=== PATIENT | male | born 1935 | race Two or more races ===

== ENCOUNTER 2016-09-21 17:55 | Inpatient (IN) | payer MEDICARE ==
[~2016-09-21] VITALS: Ht 162.6 cm; Wt 85.3 kg
[2016-09-21 18:24] LABS: KETONES,URINE Negative (NEGATIVE); LEUKOCYTE ESTERASE ,URINE Small (NEGATIVE)
[2016-09-21 18:30] LABS: CANNABINOID, URINE NEGATIVE (NEGATIVE); PHENCYCLIDINE SCREEN,URINE NEGATIVE (NEGATIVE)
[2016-09-21 18:39] LABS: ADD UA MICROSCOPIC YES
[2016-09-21 18:43] LABS: BASOPHILS % (AUTO) 0.5 % (0.0-2.0); DIFF TOTAL % 100 %; EOSINOPHILS # (AUTO) 0.2 /CMM (0.0-0.7); EOSINOPHILS % (AUTO) 2.3 % (0.0-6.0); HEMATOCRIT 37 % (39-51); LYMPHOCYTES % (AUTO) 24.1 % (20.0-44.0); MEAN CORPUSCULAR HEMOGLOBIN 33 PG (26.0-33.0); MEAN CORPUSCULAR HGB CONC 35 g/dl (31.0-36.0); MEAN CORPUSCULAR VOLUME 93 fL (80-96); MONOCYTES # (AUTO) 0.5 /CMM (0.1-1.30); MONOCYTES % (AUTO) 5.7 % (2.0-12.0); NEUTROPHILS # (AUTO) 5.8 /CMM (1.8-8.9); NEUTROPHILS % (AUTO) 67.4 % (43.0-81.0); PLATELET COUNT (AUTO) 203 /CMM (150-450); RED BLOOD CELL COUNT(AUTO) 3.97 MIL/uL (4.5-6.0); WHITE BLOOD COUNT (AUTO) 8.5 K/uL (4.3-11.0)
[2016-09-21] MEDS ORDERED: LISI-607 PO (18:46)
[2016-09-21] MEDS ORDERED: SERT20OR PO (18:46)
[2016-09-21] MEDS ORDERED: ATOR10TA PO (18:46)
[2016-09-21] MEDS ORDERED: DIVA125T3 PO (18:46)
[2016-09-21] MEDS ORDERED: OMEP40CA37 PO (18:46)
[2016-09-21] MEDS ORDERED: TAMS-12 PO (18:46)
[2016-09-21 18:55] LABS: ANION GAP 14 (5-14); CALCIUM, SERUM 8.3 mg/dL (8.5-10.1); CARBON DIOXIDE 25 mmol/L (21-32); CHLORIDE 105 mmol/L (98-107); CREATININE 0.8 mg/dL (0.6-1.3); GLUCOSE 127 mg/dL (74-106); POTASSIUM 3.8 mmol/L (3.5-5.1); SODIUM SERUM 140 mmol/L (136-145); UREA NITROGEN, BLOOD 11 mg/dL (7-18)
[2016-09-21 19:05] LABS: ALANINE AMINOTRANSFERASE 15 U/L (12-78); ALBUMIN 3.7 g/dL (3.4-5.0); ASPARTATE AMINOTRANSFERASE 11 U/L (15-37); BILIRUBIN,DIRECT 0.1 mg/dL (0.0-0.2); BILIRUBIN,TOTAL 0.5 mg/dL (0.2-1.0); INDIRECT BILIRUBIN 0.4 mg/dL (0.0-1.1); TOTAL PROTEIN, SERUM 6.7 g/dL (6.4-8.2)
[2016-09-21 19:07] LABS: ACETAMINOPHEN < 2 ug/ml (10-30); SALICYLATE < 2.8 mg/dL (2.8-20.0)
[2016-09-21 19:08] LABS: ADD URINE CULTURE YES; RBC,URINE 0-2 /HPF (0-2)
[2016-09-21 20:00] VITALS: BP 137/80
[2016-09-21] MEDS ORDERED: ACETAMINOPHEN 325 MG TABLET PO PRN (20:00)
[2016-09-21] MEDS ORDERED: TEMAZEPAM 7.5 MG CAPSULE PO PRN (20:00)
[2016-09-21] MEDS ORDERED: MAG HYDROX/AL HYDROX/SIMETH 30 ML UDC PO PRN (20:00)
[2016-09-21] MEDS ORDERED: LORAZEPAM 0.5 MG TABLET PO PRN (20:00)
[2016-09-21] MEDS ORDERED: MAGNESIUM HYDROXIDE 30 ML UDC PO PRN (20:00)
[2016-09-21] MEDS: ATORVASTATIN 10 MG TABLET PO SCH (21:48)
[2016-09-22 08:00] VITALS: BP 134/82
[2016-09-22] MEDS: TAMSULOSIN 0.4 MG CAP.SR.24H PO SCH (08:28)
[2016-09-22] MEDS: PANTOPRAZOLE 40 MG TABLET.DR PO SCH (08:29)
[2016-09-22] MEDS: LISINOPRIL (5MG) 5 MG TABLET PO SCH (08:29)
[2016-09-22] MEDS: ATORVASTATIN 10 MG TABLET PO SCH (08:29)
[2016-09-22] MEDS ORDERED: Medication Not On Formulary EA (Omeprazole 40 MG) PO SCH (09:00)
[2016-09-22] MEDS: SERTRALINE HCL 25 MG TABLET PO SCH (14:30)
[2016-09-22 16:15] VITALS: BP 111/52
[2016-09-22 20:00] VITALS: BP 112/70
[2016-09-22] MEDS: DIVALPROEX SODIUM 125 MG CAP.SPRINK PO SCH (22:00)
[2016-09-23 08:03] VITALS: BP 122/73
[2016-09-23] MEDS: SERTRALINE HCL 25 MG TABLET PO SCH (09:29)
[2016-09-23] MEDS: PANTOPRAZOLE 40 MG TABLET.DR PO SCH (09:29)
[2016-09-23] MEDS: LISINOPRIL (5MG) 5 MG TABLET PO SCH (09:29)
[2016-09-23] MEDS: ATORVASTATIN 10 MG TABLET PO SCH (09:29)
[2016-09-23] MEDS: TAMSULOSIN 0.4 MG CAP.SR.24H PO SCH (09:29)
[2016-09-23 16:14] VITALS: BP 115/67
[2016-09-23 19:50] VITALS: BP 126/65
[2016-09-23] MEDS: DIVALPROEX SODIUM 125 MG CAP.SPRINK PO SCH (21:16)
[2016-09-24 08:00] VITALS: BP 147/73
[2016-09-24] MEDS: ATORVASTATIN 10 MG TABLET PO SCH (08:31)
[2016-09-24] MEDS: TAMSULOSIN 0.4 MG CAP.SR.24H PO SCH (08:31)
[2016-09-24] MEDS: LISINOPRIL (5MG) 5 MG TABLET PO SCH (08:32)
[2016-09-24] MEDS: SERTRALINE HCL 25 MG TABLET PO SCH (08:32)
[2016-09-24] MEDS: PANTOPRAZOLE 40 MG TABLET.DR PO SCH (08:32)
[2016-09-24 16:10] VITALS: BP 103/55
[2016-09-24 20:00] VITALS: BP 112/55
[2016-09-25 08:00] VITALS: BP 127/75
[2016-09-25] MEDS: DIVALPROEX SODIUM 125 MG CAP.SPRINK PO SCH ×3 (09:17→21:38)
[2016-09-25] MEDS: LISINOPRIL (5MG) 5 MG TABLET PO SCH (09:18)
[2016-09-25] MEDS: SERTRALINE HCL 25 MG TABLET PO SCH (09:18)
[2016-09-25] MEDS: TAMSULOSIN 0.4 MG CAP.SR.24H PO SCH (09:18)
[2016-09-25] MEDS: ATORVASTATIN 10 MG TABLET PO SCH (09:19)
[2016-09-25] MEDS: PANTOPRAZOLE 40 MG TABLET.DR PO SCH (09:22)
[2016-09-25 16:00] VITALS: BP 112/67
[2016-09-25 20:10] VITALS: BP 110/50
[2016-09-26] MEDS: PANTOPRAZOLE 40 MG TABLET.DR PO SCH (07:30)
[2016-09-26 08:00] VITALS: BP 120/66
[2016-09-26] MEDS: ATORVASTATIN 10 MG TABLET PO SCH (09:22)
[2016-09-26] MEDS: DIVALPROEX SODIUM 125 MG CAP.SPRINK PO SCH ×2 (09:23→20:09)
[2016-09-26] MEDS: TAMSULOSIN 0.4 MG CAP.SR.24H PO SCH (09:23)
[2016-09-26] MEDS: SERTRALINE HCL 25 MG TABLET PO SCH (09:23)
[2016-09-26] MEDS: LISINOPRIL (5MG) 5 MG TABLET PO SCH (09:24)
[2016-09-26 16:08] VITALS: BP 110/62
[2016-09-26 20:06] VITALS: BP 115/66
[2016-09-27] MEDS: DIVALPROEX SODIUM 125 MG CAP.SPRINK PO SCH ×2 (08:38→21:00)
[2016-09-27] MEDS: ATORVASTATIN 10 MG TABLET PO SCH (08:38)
[2016-09-27] MEDS: TAMSULOSIN 0.4 MG CAP.SR.24H PO SCH (08:38)
[2016-09-27] MEDS: SERTRALINE HCL 25 MG TABLET PO SCH (08:38)
[2016-09-27] MEDS: LISINOPRIL (5MG) 5 MG TABLET PO SCH (08:39)
[2016-09-27] MEDS: PANTOPRAZOLE 40 MG TABLET.DR PO SCH (08:39)
[2016-09-27 09:00] VITALS: BP 130/79
[2016-09-27 16:00] VITALS: BP 144/69
[2016-09-27 20:00] VITALS: BP 110/57
[2016-09-28 08:00] VITALS: BP 129/71
[2016-09-28] MEDS: PANTOPRAZOLE 40 MG TABLET.DR PO SCH (09:02)
[2016-09-28] MEDS: SERTRALINE HCL 25 MG TABLET PO SCH (09:02)
[2016-09-28] MEDS: DIVALPROEX SODIUM 125 MG CAP.SPRINK PO SCH ×2 (09:04→20:21)
[2016-09-28] MEDS: LISINOPRIL (5MG) 5 MG TABLET PO SCH (09:04)
[2016-09-28] MEDS: TAMSULOSIN 0.4 MG CAP.SR.24H PO SCH (09:04)
[2016-09-28] MEDS: ATORVASTATIN 10 MG TABLET PO SCH (09:05)
[2016-09-28 16:00] VITALS: BP 104/53
[2016-09-28 20:00] VITALS: BP 118/61
[2016-09-29 08:00] VITALS: BP 125/67
[2016-09-29] MEDS: ATORVASTATIN 10 MG TABLET PO SCH (08:23)
[2016-09-29] MEDS: DIVALPROEX SODIUM 125 MG CAP.SPRINK PO SCH ×2 (08:23→20:00)
[2016-09-29] MEDS: SERTRALINE HCL 25 MG TABLET PO SCH (08:24)
[2016-09-29] MEDS: TAMSULOSIN 0.4 MG CAP.SR.24H PO SCH (08:24)
[2016-09-29] MEDS: PANTOPRAZOLE 40 MG TABLET.DR PO SCH (08:24)
[2016-09-29] MEDS: LISINOPRIL (5MG) 5 MG TABLET PO SCH (08:25)
[2016-09-29 16:09] VITALS: BP 115/62
[2016-09-29 20:00] VITALS: BP 121/72
[2016-09-30] MEDS: PANTOPRAZOLE 40 MG TABLET.DR PO SCH (07:30)
[2016-09-30 08:00] VITALS: BP 124/70
[2016-09-30] MEDS: TAMSULOSIN 0.4 MG CAP.SR.24H PO SCH (09:44)
[2016-09-30] MEDS: DIVALPROEX SODIUM 125 MG CAP.SPRINK PO SCH ×2 (09:44→21:56)
[2016-09-30] MEDS: ATORVASTATIN 10 MG TABLET PO SCH (09:44)
[2016-09-30] MEDS: LISINOPRIL (5MG) 5 MG TABLET PO SCH (09:45)
[2016-09-30] MEDS: SERTRALINE HCL 25 MG TABLET PO SCH (09:45)
[2016-09-30 16:00] VITALS: BP 127/65
[2016-09-30 19:59] VITALS: BP 118/79
[2016-10-01 08:00] VITALS: BP 116/60
[2016-10-01] MEDS: TAMSULOSIN 0.4 MG CAP.SR.24H PO SCH (08:14)
[2016-10-01] MEDS: DIVALPROEX SODIUM 125 MG CAP.SPRINK PO SCH (08:14)
[2016-10-01] MEDS: PANTOPRAZOLE 40 MG TABLET.DR PO SCH (08:15)
[2016-10-01] MEDS: ATORVASTATIN 10 MG TABLET PO SCH (08:15)
[2016-10-01] MEDS: SERTRALINE HCL 25 MG TABLET PO SCH (08:15)
[2016-10-01 08:16] VITALS: BP 116/60
[2016-10-01] MEDS: LISINOPRIL (5MG) 5 MG TABLET PO SCH (08:16)
== END 2016-10-01 12:15 | DRG 885 ==
LOC: ER 18:03 → GPS 19:40
PROVIDERS: ADMIT Psychiatry & Neurology Psychosomatic Medicine; ATTEND Internal Medicine
DX: F32.3 Major depressive disorder, single episode, severe with psychotic features (principal); F03.90 Unspecified dementia, unspecified severity, without behavioral disturbance, psychotic disturbance, mood disturbance, and anxiety; E78.5 Hyperlipidemia, unspecified; K21.9 Gastro-esophageal reflux disease without esophagitis; I10 Essential (primary) hypertension; N40.0 Benign prostatic hyperplasia without lower urinary tract symptoms
CPT/HCPCS: 36415; 71010-TC; 80048-TC; 80076-TC; 80305; 81000-TC; 85025-TC; 87081-TC; 87086-TC; 97001-TC; A4606; G0480; G6039-TC; Z7610

== ENCOUNTER 2017-04-01 09:53 | Emergency (ER) | payer MEDICARE, OTHER ==
[~2017-04-01] VITALS: Ht 172.7 cm; Wt 72.6 kg
[~2017-04-01 09:53] MED LIST: ATOR10TA PO; LISI-607 PO; OMEP40CA37 PO; TAMS-12 PO
--- NOTE | 2017-04-01 09:55 | NUR ---
pt to ed room 06. BIB EMS FROM [facility] C/O 1CM LAC TO SCALP S/P WITNESSED GLF FROM SHOWER CHAIR. changed to gown. side rails up. hob elvevated. connected to monitor. seen and evaluiated by kan provider. MARIANO
--- NOTE | 2017-04-01 10:05 | NUR ---
channel machine operator at bedside for blood draw
[2017-04-01 10:11] LABS: BASOPHILS # (AUTO) 0.1 /CMM (0.0-0.2); BASOPHILS % (AUTO) 0.5 % (0.0-2.0); EOSINOPHILS # (AUTO) 0.1 /CMM (0.0-0.7); EOSINOPHILS % (AUTO) 1.2 % (0.0-6.0); HEMATOCRIT 34 % (39-51); LYMPHOCYTES # (AUTO) 1.2 /CMM (0.8-4.8); LYMPHOCYTES % (AUTO) 10.8 % (20.0-44.0); MEAN CORPUSCULAR HEMOGLOBIN 33 PG (26.0-33.0); MEAN CORPUSCULAR HGB CONC 35 g/dl (31.0-36.0); MEAN CORPUSCULAR VOLUME 93 fL (80-96); MONOCYTES # (AUTO) 0.8 /CMM (0.1-1.30); NEUTROPHILS # (AUTO) 8.9 /CMM (1.8-8.9); NEUTROPHILS % (AUTO) 80.5 % (43.0-81.0); PLATELET COUNT (AUTO) 281 /CMM (150-450); RDW COEFFICIENT OF VARIATION 13.2 (11.5-15.0); RED BLOOD CELL COUNT(AUTO) 3.71 MIL/uL (4.5-6.0); WHITE BLOOD COUNT (AUTO) 11.1 K/uL (4.3-11.0)
[2017-04-01 10:20] LABS: CALCIUM, SERUM 7.8 mg/dL (8.5-10.1); CARBON DIOXIDE 23 mmol/L (21-32); CHLORIDE 100 mmol/L (98-107); CREATININE 0.9 mg/dL (0.6-1.3); GLUCOSE 116 mg/dL (74-106); POTASSIUM 4.2 mmol/L (3.5-5.1); SODIUM SERUM 131 mmol/L (136-145); UREA NITROGEN, BLOOD 18 mg/dL (7-18)
[2017-04-01 10:24] LABS: INR 1.1 (0.87-1.13); PROTHROMBIN TIME 11.5 SECS (9.5-12.7)
--- NOTE | 2017-04-01 10:25 | NUR ---
pt is back from ct via gurreeder in stable condition
[2017-04-01 10:29] LABS: TROPONIN I < 0.017 ng/mL (0.00-0.056)
--- NOTE | 2017-04-01 11:15 | NUR ---
CALLED [facility] FOR TRANSPORT, ETA OF 30 MINS WAS GIVEN.
--- NOTE | 2017-04-01 11:45 | NUR ---
Patient discharged to SNF in stable condition via [facility]. Written and verbal after care instructions given. MARIANO. LINDY WNAlma. Report given to [facility] EMT.
[2017-04-01 11:48] VITALS: BP 120/71
== END 2017-04-01 11:52 | disposition home or self-care (01) ==
LOC: ER 09:56
DX: S01.01XA Laceration without foreign body of scalp, initial encounter (principal); F03.90 Unspecified dementia, unspecified severity, without behavioral disturbance, psychotic disturbance, mood disturbance, and anxiety; F32.9 Major depressive disorder, single episode, unspecified; F41.9 Anxiety disorder, unspecified; I10 Essential (primary) hypertension; K21.9 Gastro-esophageal reflux disease without esophagitis; N40.0 Benign prostatic hyperplasia without lower urinary tract symptoms; W07.XXXA Fall from chair, initial encounter; Y92.89 Other specified places as the place of occurrence of the external cause; Y93.89 Activity, other specified; Y99.8 Other external cause status
CPT/HCPCS: 36415; 70450-TC; 71010-TC; 80048-TC; 84484-TC; 85025-TC; 85730-TC; A4606; A6403; Z7610

== ENCOUNTER 2017-07-13 00:21 | Emergency (ER) | payer MEDICARE, OTHER ==
[~2017-07-13] VITALS: Ht 170.2 cm; Wt 79.8 kg
[2017-07-13] MEDS ORDERED: LIDOCAINE 2% JEL UROJET 10 ML MM ONE (00:51)
[2017-07-13] MEDS: LIDOCAINE 2% JEL UROJET 10 ML MM ONE (00:56)
--- NOTE | 2017-07-13 01:08 | NUR ---
BENITES CATH REMOVED AND NEW ONE REINSERTED WITH 18F COUDE. 500ML SLIGHTLY RED TINGED URINE OUTPUT NOTED.
--- NOTE | 2017-07-13 01:18 | NUR ---
600ML TOTAL URINE OUTPUT NOTED. LAST 200 ML IS YELLOW TINGED
[2017-07-13 01:30] LABS: APPEARANCE,URINE SL CLOUDY (CLEAR); BLOOD, URINE 3+ Ery/uL (NEGATIVE); PROTEIN,URINE TRACE mg/dl (NEGATIVE); UGLUCOSE NEGATIVE (NEGATIVE)
[2017-07-13 01:31] LABS: BILIRUBIN,URINE NEGATIVE (NEGATIVE); KETONES,URINE NEGATIVE (NEGATIVE); LEUKOCYTE ESTERASE ,URINE 3+ (NEGATIVE); NITRITE, URINE POSITIVE (NEGATIVE); UROBILINOGEN,URINE 0.2 EU/dL (0.2)
[2017-07-13 01:34] LABS: COLOR,URINE DARK YELLOW (YELLOW)
[2017-07-13 01:38] LABS: RBC,URINE 21-50 /HPF (0-2)
--- NOTE | 2017-07-13 01:38 | NUR ---
CALLED [facility] FOR TRANSPORTATION GOING TO [facility] ETA 30 MIN
[2017-07-13 01:39] LABS: BACTERIA,URINE Moderate /HPF (None Seen); SQUAMOUS EPITHELIAL CELL,UR Few /HPF (None Seen)
--- NOTE | 2017-07-13 02:10 | NUR ---
[facility] ARRIVED AND REPORT WAS GIVEN TO EMT. CALLED [facility] AND GAVE REPORT TO NIGHT RN. Patient discharged to home in stable condition. Written and verbal after care instructions given. Patient verbalizes understanding of instruction.
--- NOTE | 2017-07-13 02:11 | NUR ---
PT LEFT VIA AMBULANCE.
[2017-07-13 02:13] VITALS: BP 122/71
== END 2017-07-13 02:14 | disposition home or self-care (01) ==
LOC: ER 00:23
DX: R33.9 Retention of urine, unspecified (principal); N39.0 Urinary tract infection, site not specified; I10 Essential (primary) hypertension; K21.9 Gastro-esophageal reflux disease without esophagitis; F32.9 Major depressive disorder, single episode, unspecified; F03.90 Unspecified dementia, unspecified severity, without behavioral disturbance, psychotic disturbance, mood disturbance, and anxiety; N40.0 Benign prostatic hyperplasia without lower urinary tract symptoms; F41.9 Anxiety disorder, unspecified
CPT/HCPCS: 81000-TC; 87086-TC; 87186-TC; A4606; J3490; Z7610

== ENCOUNTER 2018-01-14 21:13 | Inpatient (IN) | payer MEDICARE, OTHER ==
[~2018-01-14] VITALS: Ht 175.3 cm; Wt 76.9 kg
--- NOTE | 2018-01-14 21:31 | NUR ---
PT JAKOB FROM [facility]. FOR SYNCOPAL EPISODE PER PA "FOUND ON THE GROUND X 3 HRS AGO, UNWITNESSED" PT AOX3 WITH CONFUSION (PER PA PT BASELINE) RR EVEN AND UNLABORED. NO SOB NOTED. NAD NOTED. NO NVD AT THIS TIME. PT GOWNED AND PLACED ON MONITOR WAITING FOR MD GODINEZ.
[2018-01-14] MEDS ORDERED: IV NS 0.9% 500 ML BAG IV ONE (22:30)
[2018-01-14 22:35] LABS: BASOPHILS % (AUTO) 0.4 % (0.0-2.0); EOSINOPHILS % (AUTO) 1.9 % (0.0-6.0); HEMATOCRIT 30 % (39-51); HEMOGLOBIN 10.3 g/dL (13.5-17.5); LYMPHOCYTES # (AUTO) 2.5 /CMM (0.8-4.8); LYMPHOCYTES % (AUTO) 25.2 % (20.0-44.0); MEAN CORPUSCULAR HGB CONC 35 g/dl (31.0-36.0); MEAN CORPUSCULAR VOLUME 94 fL (80-96); MONOCYTES # (AUTO) 0.8 /CMM (0.1-1.30); MONOCYTES % (AUTO) 7.8 % (2.0-12.0); NEUTROPHILS # (AUTO) 6.5 /CMM (1.8-8.9); NEUTROPHILS % (AUTO) 64.7 % (43.0-81.0); PLATELET COUNT (AUTO) 322 /CMM (150-450); RDW COEFFICIENT OF VARIATION 13.4 (11.5-15.0); RED BLOOD CELL COUNT(AUTO) 3.18 MIL/uL (4.5-6.0); WHITE BLOOD COUNT (AUTO) 10.1 K/uL (4.3-11.0)
--- NOTE | 2018-01-14 22:50 | NUR ---
RADIOLOGY AT BEDSIDE FOR CXR
[2018-01-14 22:53] LABS: CALCIUM, SERUM 8.6 mg/dL (8.5-10.1); CARBON DIOXIDE 27 mmol/L (21-32); CHLORIDE 103 mmol/L (98-107); CREATININE 0.7 mg/dL (0.6-1.3); GLUCOSE 100 mg/dL (74-106); POTASSIUM 4.1 mmol/L (3.5-5.1); SODIUM SERUM 138 mmol/L (136-145); UREA NITROGEN, BLOOD 17 mg/dL (7-18)
[2018-01-14 22:56] LABS: ALANINE AMINOTRANSFERASE 19 U/L (12-78); ALBUMIN 3.3 g/dL (3.4-5.0); ALKALINE PHOSPHATASE 104 U/L (46-116); ASPARTATE AMINOTRANSFERASE 14 U/L (15-37); BILIRUBIN,DIRECT 0.1 mg/dL (0.0-0.2); BILIRUBIN,TOTAL 0.4 mg/dL (0.2-1.0); TOTAL PROTEIN, SERUM 6.6 g/dL (6.4-8.2)
[2018-01-14 22:58] LABS: TROPONIN I < 0.017 ng/mL (0.00-0.056)
--- NOTE | 2018-01-14 23:24 | NUR ---
DR. PRAJAPATI AT BEDSIDE FOR EVAL.
--- NOTE | 2018-01-14 23:45 | NUR ---
REPORT GIVEN TO SAHARA FLORES FOR TELE BED 327
[2018-01-15] VITALS (9 sets, daily range): BP systolic 102–139; BP diastolic 62–73
--- NOTE | 2018-01-15 00:02 | NUR ---
PT TRANSFERRED PER [facility].
--- NOTE | 2018-01-15 00:17 | NUR ---
TELE ADOLESCENT COUNSELOR INITIAL NOTES ADMIT PT FROM ER VIA GURNEY ACCOMPANIED BY ER NURSE AND TECH.DX OF [facility]. PT IS RESTING AT THIS TIME BUT AROUSED TO TOUCH, DENIES ANY PAIN OR ANY DISCOMFORT. NO SIGNS OF ANY ACUTE DISTRESS NOTED. VITAL SIGNS TAKEN FF BP 134/70, PULSE 77,RESP 20, TEMP 98.1 AND O2 SAT 96 % IN ROOM AIR. ORIENTED WHERE HE THEN HE STARTED SAYING "LEAVE ME ALONE ',LEAVE ME ALONE" EVEN WE EXPLAINED TO HIM WHAT WHAT WE HAVE TO DO AND WHY WE NEED TO APPLIED TELE MONITOR AND TELLING THE PURPOSE OF IT. HE ALWAYS SAYING "LEAVE ME ALONE I WANT TO SLEEP " KEPT HIM WARM AND COMFORTABLE AND BED ALARM SET FOR SAFETY. BENITES MISTY AT THIS TIME . CHARGE NURSE AWARE.
[2018-01-15] MEDS ORDERED: IV NS 0.9% 1,000 ML IV PRN (00:37)
[2018-01-15] MEDS ORDERED: LISI-607 PO (00:55)
[2018-01-15] MEDS ORDERED: CALC500T3 PO (00:55)
[2018-01-15] MEDS ORDERED: ATOR20TA PO (00:55)
[2018-01-15] MEDS ORDERED: CRAN400C PO (00:55)
[2018-01-15] MEDS ORDERED: TAMS-12 PO (00:55)
[2018-01-15] MEDS ORDERED: HYDROCODONE/APAP 5/325MG 1 EACH TABLET PO PRN (01:00)
[2018-01-15] MEDS ORDERED: ACETAMINOPHEN 325 MG TABLET PO PRN (01:00)
[2018-01-15] MEDS ORDERED: ENOXAPARIN SODIUM 40 MG/0.4 ML DISP.SYRIN SQ SCH (01:00)
[2018-01-15] MEDS ORDERED: Z GUARD REMEDY 2 OZ OINT TP PRN (01:00)
[2018-01-15] MEDS ORDERED: MAGNESIUM HYDROXIDE 30 ML UDC PO PRN (01:00)
[2018-01-15] MEDS ORDERED: ZOLPIDEM TARTRATE 5 MG TABLET PO PRN (01:00)
[2018-01-15] MEDS ORDERED: ONDANSETRON HCL/PF 4 MG/2 ML VIAL IVP PRN (01:00)
[2018-01-15] MEDS ORDERED: MAG HYDROX/AL HYDROX/SIMETH 30 ML UDC PO PRN (01:00)
[2018-01-15] MEDS ORDERED: MELA3TAB PO (01:15)
[2018-01-15] MEDS ORDERED: LEUP3.753 IM (01:15)
[2018-01-15] MEDS ORDERED: POLY17PO4 PO (01:15)
[2018-01-15] MEDS ORDERED: SERT50TA PO (01:15)
--- NOTE | 2018-01-15 07:30 | NUR ---
RN OPEN NOTES RECEIVED REPORT AT BEDSIDE. NO SIGNS AND SYMPTOMS OF DISTRESS OR PAIN. PATIENT IS IN BED, AWAKE, ALERT AND ORIENTED TO NAME, PLACE AND TIME. REFUSING IV FLUID. BED IN LOW POSITION, LOCKED AND TWO SIDE RAILS ARE UP. CALL LIGHT WITHIN REACH FOR SAFETY. WILL CONTINUE TO MONITOR PATIENT
--- NOTE | 2018-01-15 07:31 | NUR ---
TELE TATTOO DESIGNER NOTES PT SLEEPING AFTER MORNING CARE DONE, HE STILL REFUSING HIS IVF TO BE RUN EVEN I TOLD HIM WHAT THE PURPOSE OF IT. TELE SR PER MONITOR. VITAL SIGNS WITHIN NORMAL LIMIT. STABLE TITUS THE NIGHT AND ALL NEEDS MET. KEPT HIM WARM AND COMFORTABLE AT ALL TIMES. BED ALARM SET FOR SAFETY. PLACE CALL LIGHT AT REACH. ENDORSE TO AM NURSE GEOVANNY/RN FOR CONTINUITY OF CARE.
[2018-01-15 10:29] LABS: THYROID STIMULATING HORMONE 2.848 uIU/mL (0.358-3.74)
--- NOTE | 2018-01-15 12:00 | NUR ---
OLD IV LEAKING - DISCONTINUED. NEW IV STARTED. PATIENT TOLERATED PROCEDURE WELL
[2018-01-15] MEDS: IV NS 0.9% 1,000 ML IV PRN (17:56)
--- NOTE | 2018-01-15 19:11 | NUR ---
RN CLOSING NOTES PATIENT IS IN BED. ALERT AWAKE AND CONFUSED. NO SIGNS AND SYMPTOMS OF DISTRESS. BED IN LOW POSITION, LOCKED AND TWO SIDE RAILS ARE UP. CALL LIGHT WITHIN REACH FOR SAFETY. IV SITE INTACT AND PATENT. BENITES IS INTACT, URINE IS YELLOW CLEAR. ALL PATIENT CARE ANTICIPATED AND ATTENDED FOR. PATIENT KEPT CLEAN AND DRY. WILL ENDORSE TO [facility] SHIFT NURSE
--- NOTE | 2018-01-15 20:00 | NUR ---
MS SAHARA INITIAL NOTES RECEIVED REPORT FORM AM NURSE. PT SEEN SITTING IN HIS BED COMPLAINING OF UPSET STOMACH. NO SIGNS OF ANY DISCOMFORT NOTED. NOTICED HE ALWAYS SPITTING ON THE FLOOR EVEN WE TOLD HIM TO USED THE TISSUE OR TOWELS. IVF NS AT 125ML/HR INFUSING ON HIS RFA PATENT AND INTACT. KEPT HIM WARM AND COMFORTABLE AT ALL TIMES. PLACE CALL LIGHT AT REACH. BENITES DRAINING WELL. WILL CONTINUE TO MONITOR.
[2018-01-15] MEDS: ENOXAPARIN SODIUM 40 MG/0.4 ML DISP.SYRIN SQ SCH (21:07)
--- NOTE | 2018-01-15 21:07 | NUR ---
MS SAHARA NOTES C/O UPSET STOMACH MAALOX GIVEN AND SNACKS ALSO SERVED PER TP REQUESTED , AND PT TOLERATED WELL. NO ASPIRATION NOTED.
--- NOTE | 2018-01-15 23:15 | NUR ---
MS RN NOTES RECEIVED PT FROM [facility] ENDORSED BY SAHARA FLORES. PT IS A/O X 2, VERBALLY RESPONSIVE. NO DISTRESS, NO SOB NOTED. RESPIRATION IS EVEN AND UNLABORED. IV SITE ON RFA INTACT AND PATENT, NO S/S OF INFILTRATION NOTED. NO C/O PAIN OIR DISCOMFORT AT THIS TIME, ALL NEEDS ATTENDED AND MET. KEPT COMFORTABLE. SAFETY PRECAUTIONS OBSERVED. CALL LIGHT WITHIN REACH. WILL CONT TO MONITOR.
--- NOTE | 2018-01-15 23:19 | NUR ---
MS LOG DECK TENDER CLOSING NOTES TRANSFERRED PT TO MS 2 . PT IS AWAKE AND ALERT , NO SIGNS OF ANY ACUTE DISTRESS NOTED. IVF STILL INFUSING, GAVE REPORT TO ANOTHER NURSE FOR CONTINUITY OF CARE.
[2018-01-15 23:24] LABS: APPEARANCE,URINE CLEAR (CLEAR); BILIRUBIN,URINE NEGATIVE (NEGATIVE); BLOOD, URINE NEGATIVE Ery/uL (NEGATIVE); COLOR,URINE YELLOW (YELLOW); KETONES,URINE NEGATIVE (NEGATIVE); LEUKOCYTE ESTERASE ,URINE NEGATIVE (NEGATIVE); NITRITE, URINE POSITIVE (NEGATIVE); PROTEIN,URINE NEGATIVE (NEGATIVE); UGLUCOSE NEGATIVE (NEGATIVE); UROBILINOGEN,URINE 0.2 EU/dL (0.2)
[2018-01-15 23:45] LABS: BACTERIA,URINE None seen /HPF (None Seen); RBC,URINE NONE SEEN /HPF (0-2); SQUAMOUS EPITHELIAL CELL,UR Few /HPF (None Seen); WBC,URINE 0-2 /HPF (0-3)
[2018-01-16] MEDS ORDERED: POLYETHYLENE GLYCOL 3350 17 GM POWD.PACK PO PRN (03:00)
[2018-01-16] MEDS ORDERED: CALCIUM CARBONATE (1250) 500 MG TABLET PO PRN (03:00)
[2018-01-16] MEDS: IV NS 0.9% 1,000 ML IV PRN (04:41)
--- NOTE | 2018-01-16 05:47 | NUR ---
PT REFUSED BLOOD DRAW X 3, RISK AND BENEFITS EXPLAINED. PT STILL REFUSED. INSIGHTS MANAGER AT BEDSIDE.
--- NOTE | 2018-01-16 06:55 | NUR ---
MS RN NOTES PT IN BED, ASLEEP AT THIS TIME, AROUSES EASILY, A/O X 2 , VERBALLY RESPONSIVE, HARD OF HEARING. IV ON RFA INTACT AND PATENT, NO S/S OF INFILTRATION NOTED. IVF INFUSING WELL. NO C/O PAIN OR DISCOMFORT AT THIS TIME. FC IS INTACT AND PATENT, DRAINING WELL WITH YELLOW URINE, NO HEMATURIA NOTED. ALL NEEDS ATTENDED AND MET. KEPT COMFORTABLE. SAFETY PRECAUTIONS OBSERVED. CALL LIGHT WITHIN REACH. WILL ENDORSE TO NEXT SHIFT FOR ALEXX.
[2018-01-16] MEDS ORDERED: OMEPRAZOLE 10 MG CAPSULE.DR PO SCH (07:30)
[2018-01-16 08:01] VITALS: BP 118/75
[2018-01-16] MEDS: PANTOPRAZOLE 40 MG TABLET.DR PO SCH ×2 (08:21→21:38)
[2018-01-16] MEDS: SERTRALINE HCL 50 MG TABLET PO SCH (08:23)
[2018-01-16] MEDS: ATORVASTATIN 10 MG TABLET PO SCH (08:23)
[2018-01-16] MEDS: TAMSULOSIN 0.4 MG CAP.SR.24H PO SCH (08:23)
[2018-01-16] MEDS: LISINOPRIL (5MG) 5 MG TABLET PO SCH (09:00)
[2018-01-16] MEDS ORDERED: CRANBERRY 425 MG PO SCH (09:00)
--- NOTE | 2018-01-16 16:20 | NUR ---
ORDERED LABS: PATIENT REFUSING LAB DRAW FOR TODAY. EXPLAINED RISKS AND BENEFITS MULTIPLE TIMES. OFFERED X4. DR LOFTON AWARE
--- NOTE | 2018-01-16 19:20 | NUR ---
RN NOTES PATIENT RESTING IN BED. NONLABORED BREATHING NOTED THROUGHOUT SHIFT. IV SITE ON RIGHT HAND PATENT AND INTACT GAUGE 22. REFUSING TO BE CONNECTED TO IV FLUIDS AT THE MOMENT. BENITES CATHETER INTACT AND DRAINING CLEAR YELLOW URINE. FALL PRECAUTIONS IMPLEMENTED THROUGHOUT SHIFT. PATIENT ABLE TO AMBULATE WITH WALKER, NOTED TO BE STEADY. DENIED DIZZINESS THROUGHOUT SHIFT. BED IN LOWEST LOCKED POSITION. CALL LIGHT WITHIN REACH
--- NOTE | 2018-01-16 19:21 | NUR ---
ENDORSED TO PM NURSE
--- NOTE | 2018-01-16 19:30 | NUR ---
MS RN OPENING NOTES: PATIENT IN BED, AOX2, ON ROOM AIR, BREATHING EVEN AND UNLABORED. APPEARS CALM AND IN NO DISTRESS. PIV OVER RFA G 22 INTACT AND PATENT TO FLUSH. BENITES CATHETER IN PLACE DRAINING CLOUDY YELLOW URINE. PROVIDED FOR COMFORT AND SAFETY. BED IN LOWEST AND LOCKED POSITION, SIDERAILS UP X 3, CALL LIGHT WITHIN REACH. BED ALARMS ON. WILL CONT TO MONITOR.
[2018-01-16 20:00] VITALS: BP 119/65
[2018-01-16] MEDS: ENOXAPARIN SODIUM 40 MG/0.4 ML DISP.SYRIN SQ SCH (21:00)
--- NOTE | 2018-01-16 21:00 | NUR ---
RN NOTES: PATIENT REFUSING TO HAVE IV FLUID RECONNECTED. RISKS EXPLAINED. PATIENT STILL REFUSED. PATIENT NOTED TO HAVE GOOD PO FLUID INTAKE,
[2018-01-16] MEDS ORDERED: Medication Not On Formulary EA (Atorvastatin Calcium (Lipitor) 1 TAB) PO SCH (22:00)
--- NOTE | 2018-01-17 06:34 | NUR ---
MS RN CLOSING NOTES : PATIENT IN BED, AOX2, ON ROOM AIR, BREATHING EVEN AND UNLABORED. APPEARS CALM AND IN NO DISTRESS. PIV OVER RFA G22, INTACT AND PATENT, PATIENT STILL REFUSING TO HAVE IV FLUIDS RECONNECTED. DUE MEDS GIVEN. PROVIDED FOR COMFORT AND SAFETY. BED IN LOWEST AND LOCKED POSITION, SIDERAILS UP X 3, CALL LIGHT WITHIN REACH. WILL ENDORSE TO AM RN FOR ALEXX.
--- NOTE | 2018-01-17 07:20 | NUR ---
REPORT RECEIVED AT THE BEDSIDE. PATIENT IS RESTING COMFORTABLY IN BED. NO SOB OR DISTRESS NOTED AT THIS TIME. PATIENT DENIES PAIN AT THIS TIME. BENITES IN PLACE AND DRAINING. PATIENT REFUSING IV FLUIDS. BED IN A LOW POSITION, CALL LIGHT WITHIN PATIENT REACH. WILL CONTINUE TO MONITOR.
[2018-01-17] MEDS: SERTRALINE HCL 50 MG TABLET PO SCH (08:17)
[2018-01-17] MEDS: PANTOPRAZOLE 40 MG TABLET.DR PO SCH (08:17)
[2018-01-17] MEDS: ATORVASTATIN 10 MG TABLET PO SCH (08:17)
[2018-01-17] MEDS: TAMSULOSIN 0.4 MG CAP.SR.24H PO SCH (08:17)
--- NOTE | 2018-01-17 08:24 | NUR ---
PT IS REFUSING AM VITALS AND LISINOPRIL. STATES "THAT STUFF MAKES ME DIZZY, I DON'T WANT IT." WILL ATTEMPT VITALS READING LATER.
[2018-01-17] MEDS: LISINOPRIL (5MG) 5 MG TABLET PO SCH (08:28)
[2018-01-17 16:37] VITALS: BP 126/73
--- NOTE | 2018-01-17 17:20 | NUR ---
DISCHARGE INSTRUCTIONS GIVEN TO THE PATIENT AND CAREGIVER AT [facility] [place] 2[place] REPORT CALLED TO ANNE ELLISON. PATIENT REFUSED TO SIGN ANY PAPERWORK, PT IS CONFUSED. ALL PAPERWORK AND BELONGINGS CHECKED AND SIGNED WITH SECOND RN. IV REMOVED AND PRESSURE APPLIED, NO BLEEDING NOTED AT THE SITE. PT REFUSED PNEUMONIA VACCINE AND FLU IS OUT OF SEASON. PATIENT LEFT IN STABLE CONDITION, VIA GURNEY WITH TWO FINAL INSPECTOR MOTORCYLES. NO SOB OR DISTRESS, PATIENT DENIES PAIN.
== END 2018-01-17 17:00 | DRG 312 ==
LOC: ER 21:15 → TELE 22:35 → MED 01-15 09:07 → MEDSG2 01-15 23:00
PROVIDERS: ADMIT Internal Medicine; ATTEND Internal Medicine
DX: R55 Syncope and collapse (principal); E43 Unspecified severe protein-calorie malnutrition; G93.49 Other encephalopathy; F32.3 Major depressive disorder, single episode, severe with psychotic features; N39.0 Urinary tract infection, site not specified; D63.8 Anemia in other chronic diseases classified elsewhere; E88.09 Other disorders of plasma-protein metabolism, not elsewhere classified; E78.5 Hyperlipidemia, unspecified; K21.9 Gastro-esophageal reflux disease without esophagitis; M62.50 Muscle wasting and atrophy, not elsewhere classified, unspecified site; I10 Essential (primary) hypertension; R53.1 Weakness; N40.1 Benign prostatic hyperplasia with lower urinary tract symptoms; Z68.25 Body mass index [BMI] 25.0-25.9, adult; F03.90 Unspecified dementia, unspecified severity, without behavioral disturbance, psychotic disturbance, mood disturbance, and anxiety
CPT/HCPCS: 36415; 70450-TC; 71045-TC; 72125-TC; 72170-TC; 80048-TC; 80076-TC; 81000-TC; 82306; 82728-TC; 82962-TC; 83540-TC; 84439-TC; 84443-TC; 84484-TC; 85025-TC; 85652-TC; 87081-TC; 87086-TC; 93307-TC; 93880-TC; A4606; J1650; J2405; J7030; J7040; Z7610

== ENCOUNTER 2018-07-25 11:55 | Emergency (ER) | payer MEDICARE, OTHER ==
[~2018-07-25] VITALS: Ht 175.3 cm; Wt 77.1 kg
[~2018-07-25 11:55] MED LIST changes: +ATOR20TA PO; +CALC500T3 PO; +CRAN400C PO; +LEUP3.753 IM; -LISI-607 PO; +MELA3TAB PO; +POLY17PO4 PO; +SERT50TA PO
--- NOTE | 2018-07-25 12:20 | NUR ---
RLQ ABD PAIN SINCE 1000, VOMITING X1. BED 12, AOX3, VSS, RR EVEN AND UNLABORED. PT HAS DIFFICULTY HEARING AND IS SLIGHTLY CONFUSED. SKIN WARM, DRY, INTACT. STATES ABDOMEN IS FEELING BETTER, NO REBOUND TENDERNESS. DENIES SOB, DIZZINESS, WEAKNESS. SEEN BY MD AND PA. WAITING FOR ORDERS. WILL CONT TO MONITOR.
[2018-07-25 12:26] LABS: BASOPHILS # (AUTO) 0.1 /CMM (0.0-0.2); BASOPHILS % (AUTO) 0.8 % (0.0-2.0); EOSINOPHILS % (AUTO) 1.2 % (0.0-6.0); HEMATOCRIT 34 % (39-51); HEMOGLOBIN 11.9 g/dL (13.5-17.5); LYMPHOCYTES # (AUTO) 1.7 /CMM (0.8-4.8); LYMPHOCYTES % (AUTO) 17.5 % (20.0-44.0); MEAN CORPUSCULAR HGB CONC 35 g/dl (31.0-36.0); MEAN CORPUSCULAR VOLUME 93 fL (80-96); MONOCYTES # (AUTO) 0.7 /CMM (0.1-1.30); MONOCYTES % (AUTO) 7.2 % (2.0-12.0); NEUTROPHILS % (AUTO) 73.3 % (43.0-81.0); PLATELET COUNT (AUTO) 214 /CMM (150-450); RED BLOOD CELL COUNT(AUTO) 3.69 MIL/uL (4.5-6.0); WHITE BLOOD COUNT (AUTO) 9.5 K/uL (4.3-11.0)
[2018-07-25 12:35] LABS: CALCIUM, SERUM 8.1 mg/dL (8.5-10.1); CARBON DIOXIDE 27 mmol/L (21-32); CHLORIDE 100 mmol/L (98-107); CREATININE 0.8 mg/dL (0.6-1.3); GLUCOSE 107 mg/dL (74-106); SODIUM SERUM 137 mmol/L (136-145); UREA NITROGEN, BLOOD 17 mg/dL (7-18)
[2018-07-25 12:42] LABS: ALANINE AMINOTRANSFERASE 14 U/L (12-78); ALBUMIN 3.7 g/dL (3.4-5.0); ALKALINE PHOSPHATASE 224 U/L (46-116); ASPARTATE AMINOTRANSFERASE 15 U/L (15-37); BILIRUBIN,DIRECT 0.2 mg/dL (0.0-0.2); BILIRUBIN,TOTAL 0.6 mg/dL (0.2-1.0); LIPASE 103 U/L (73-393); TOTAL PROTEIN, SERUM 7.1 g/dL (6.4-8.2)
--- NOTE | 2018-07-25 12:44 | NUR ---
URINE OBTAINED VIA CATHETER PER MD ORDER AND SENT TO STAT LAB
[2018-07-25 12:53] LABS: APPEARANCE,URINE Clear (CLEAR); BILIRUBIN,URINE Negative (NEGATIVE); BLOOD, URINE Moderate Ery/uL (NEGATIVE); COLOR,URINE Yellow (YELLOW); KETONES,URINE Negative (NEGATIVE); LEUKOCYTE ESTERASE ,URINE Large (NEGATIVE); NITRITE, URINE Positive (NEGATIVE); PH,URINE 5.5 (5.0-8.0); PROTEIN,URINE 30 mg/dl (NEGATIVE); UGLUCOSE Negative (NEGATIVE); UROBILINOGEN,URINE 0.2 EU/dL (0.2)
--- NOTE | 2018-07-25 12:53 | NUR ---
PT OUT FOR CT
--- NOTE | 2018-07-25 12:58 | NUR ---
PT BACK FROM CT
[2018-07-25 13:01] LABS: BACTERIA,URINE 1+ /HPF (None Seen); SQUAMOUS EPITHELIAL CELL,UR Rare /HPF (None Seen)
--- NOTE | 2018-07-25 14:15 | NUR ---
[facility] 15 MIN. TRANSPORT #[id number]
[2018-07-25] MEDS ORDERED: LEVOFLOXACIN (500MG) 500 MG TABLET ONE (14:18)
[2018-07-25] MEDS ORDERED: LEVOFLOXACIN (500MG) 500 MG TABLET PO ONE (14:30)
--- NOTE | 2018-07-25 15:07 | NUR ---
Note sofione in EDM - 07/25/18 at 1510 by BEV IV removed. Catheter intact and site benign. Pressure and 4x4 applied to site. No bleeding noted. Patient discharged to home in stable condition. Written and verbal after care instructions given. Patient verbalizes understanding of instruction.
--- NOTE | 2018-07-25 15:11 | NUR ---
IV removed. Catheter intact and site benign. Pressure and 4x4 applied to site. No bleeding noted. REPORT GIVEN TO [facility] EMT. Patient discharged to home in stable condition. Written and verbal after care instructions given. Patient verbalizes understanding of instruction. PT GIVEN RX. VSS. PT LEFT VIA AMBULANCE.
[2018-07-25 15:14] VITALS: BP 123/64
== END 2018-07-25 15:14 | disposition home or self-care (01) ==
LOC: ER 11:56
DX: N39.0 Urinary tract infection, site not specified (principal); N40.0 Benign prostatic hyperplasia without lower urinary tract symptoms; I10 Essential (primary) hypertension; F03.90 Unspecified dementia, unspecified severity, without behavioral disturbance, psychotic disturbance, mood disturbance, and anxiety; E78.5 Hyperlipidemia, unspecified; K21.9 Gastro-esophageal reflux disease without esophagitis; F41.9 Anxiety disorder, unspecified; F32.9 Major depressive disorder, single episode, unspecified
CPT/HCPCS: 36415; 74176; 80048; 80076; 81001; 83690; 85025; 87077; 87086; 87186; 99284; A4606; 81000-TC; Z7610

== ENCOUNTER 2019-05-01 18:17 | Emergency (ER) | payer MEDICARE, MEDICAID ==
[~2019-05-01] VITALS: Ht 170.2 cm; Wt 65.8 kg
[~2019-05-01 18:17] MED LIST changes: -CALC500T3 PO; +CALC500T88 PO
[2019-05-01] MEDS ORDERED: DONE10TA44 PO (18:53)
[2019-05-01] MEDS ORDERED: MULT-24 PO (18:53)
[2019-05-01] MEDS ORDERED: NA P133E RC (18:53)
[2019-05-01] MEDS ORDERED: DOCU250C14 PO (18:53)
[2019-05-01] MEDS ORDERED: LEUP11.23 IM (18:53)
[2019-05-01] MEDS ORDERED: MAGN400O6 PO (18:53)
[2019-05-01] MEDS ORDERED: BISA10SU11 RC (18:53)
[2019-05-01] MEDS ORDERED: AMLO10TA4 PO (18:53)
[2019-05-01] MEDS ORDERED: ACET-868 PO (18:53)
[2019-05-01] MEDS ORDERED: PSYL3.4P6 PO (18:53)
[2019-05-01] MEDS ORDERED: DIVA500T2 PO (18:55)
[2019-05-01] MEDS ORDERED: DIVA125C2 PO (18:55)
[2019-05-01] MEDS ORDERED: CHOL100044 PO (18:55)
[2019-05-01] MEDS ORDERED: MORPHINE SULFATE INJ 2 MG/ML DISP.SYRIN IV ONE (19:00)
[2019-05-01] MEDS ORDERED: ONDANSETRON HCL/PF 4 MG/2 ML VIAL IVP ONE (19:00)
[2019-05-01] MEDS ORDERED: IV NS 0.9% 500 ML BAG IV ONE (19:00)
[2019-05-01] MEDS ORDERED: MORPHINE SULFATE INJ 4 MG/ML DISP.SYRIN ONE (19:10)
[2019-05-01] MEDS ORDERED: ONDANSETRON HCL/PF 4 MG/2 ML VIAL ONE (19:10)
[2019-05-01 19:14] LABS: BASOPHILS # (AUTO) 0.1 /CMM (0.0-0.2); BASOPHILS % (AUTO) 0.7 % (0.0-2.0); EOSINOPHILS % (AUTO) 1.8 % (0.0-6.0); HEMATOCRIT 32 % (39-51); LYMPHOCYTES # (AUTO) 1.7 /CMM (0.8-4.8); LYMPHOCYTES % (AUTO) 17.9 % (20.0-44.0); MEAN CORPUSCULAR HGB CONC 34 g/dl (31.0-36.0); MEAN CORPUSCULAR VOLUME 94 fL (80-96); MONOCYTES # (AUTO) 0.6 /CMM (0.1-1.30); NEUTROPHILS # (AUTO) 6.9 /CMM (1.8-8.9); NEUTROPHILS % (AUTO) 73.6 % (43.0-81.0); PLATELET COUNT (AUTO) 280 /CMM (150-450); RED BLOOD CELL COUNT(AUTO) 3.41 MIL/uL (4.5-6.0); WHITE BLOOD COUNT (AUTO) 9.4 K/uL (4.3-11.0)
[2019-05-01 19:27] LABS: CALCIUM, SERUM 8.7 mg/dL (8.5-10.1); CREATININE 0.9 mg/dL (0.6-1.3); POTASSIUM 3.7 mmol/L (3.5-5.1)
[2019-05-01 19:33] LABS: ALBUMIN 3.2 g/dL (3.4-5.0); BILIRUBIN,DIRECT 0.1 mg/dL (0.0-0.2); BILIRUBIN,TOTAL 0.3 mg/dL (0.2-1.0); TOTAL PROTEIN, SERUM 6.9 g/dL (6.4-8.2)
[2019-05-01 19:38] LABS: APPEARANCE,URINE Slightly Cloudy (CLEAR); BILIRUBIN,URINE Negative (NEGATIVE); BLOOD, URINE Trace-lysed Ery/uL (NEGATIVE); COLOR,URINE Yellow (YELLOW); KETONES,URINE Negative (NEGATIVE); LEUKOCYTE ESTERASE ,URINE Small (NEGATIVE); NITRITE, URINE Positive (NEGATIVE); PROTEIN,URINE 30 mg/dl (NEGATIVE); UGLUCOSE Negative (NEGATIVE); UROBILINOGEN,URINE 0.2 EU/dL (0.2)
[2019-05-01 19:55] LABS: BACTERIA,URINE 2+ /HPF (None Seen); SQUAMOUS EPITHELIAL CELL,UR Few /HPF (None Seen)
[2019-05-01] MEDS ORDERED: CEFTRIAXONE 1GM BAG (ER ONLY) 50 ML IV ONE (20:37)
--- NOTE | 2019-05-01 20:45 | NUR ---
ARRANGED TRANSPORT WITH [facility] SPOKE TO [facility] 21:15
--- NOTE | 2019-05-01 20:45 | NUR ---
Mitchell vail in [facility] - 05/01/19 at 2045 by MAYI ARRANGED TRANSPORT WITH [facility] 21:15
[2019-05-01] MEDS ORDERED: CEFTRIAXONE 1 G in IV D5W 50 ML IV ONE (21:00)
--- NOTE | 2019-05-01 21:03 | NUR ---
BENITES CATHETER CHANGED VIA ASEPTIC TECHNIQUE. REPORT GIVEN TO KYE.
--- NOTE | 2019-05-01 21:55 | NUR ---
PATIENT TRANSFERRED TO [facility], REPORT GIVEN TO ENGINEERING TECHNICIAN. PATIENT IN NO DISTRESS, DENIES PAIN AT THIS TIME, BENITES CATHETER PATENT AND DRAINING WITH YELLOW URINE. PATIENT LEFT IN STABLE CONDITION. REPORT GIVEN TO KYE RODRÍGUEZ AT [facility].
[2019-05-01 21:56] VITALS: BP 94/54
--- NOTE | 2019-05-01 21:56 | NUR ---
IV removed. Catheter intact and site benign. Pressure and 4x4 applied to site. No bleeding noted.Patient discharged to home in stable condition. Written and verbal after care instructions given. Patient verbalizes understanding of instruction.
== END 2019-05-01 21:56 ==
LOC: ER 18:19
DX: N39.0 Urinary tract infection, site not specified (principal); F03.90 Unspecified dementia, unspecified severity, without behavioral disturbance, psychotic disturbance, mood disturbance, and anxiety; I10 Essential (primary) hypertension; K21.9 Gastro-esophageal reflux disease without esophagitis; N40.0 Benign prostatic hyperplasia without lower urinary tract symptoms; F41.9 Anxiety disorder, unspecified; Z79.899 Other long term (current) drug therapy
CPT/HCPCS: 36415; 51702; 80048; 80076; 81001; 85025; 87086; 96374; 96375; 99284; J0696; J2270; J2405; J7040; J7060; 81000-TC; J7030